=== PATIENT | male | born 1985 | race Caucasian/White ===

== ENCOUNTER 2019-05-30 14:37 | Emergency (ER) | payer OTHER ==
[~2019-05-30] VITALS: Ht 185.4 cm; Wt 94.3 kg
[2019-05-30 15:17] VITALS: Ht 185.4 cm; Wt 94.3 kg
[2019-05-30 16:50] VITALS: BP 158/78
== END 2019-05-30 16:50 | disposition home or self-care (01) ==
LOC: ED 14:37
DX: B34.9 Viral infection, unspecified (principal); Z20.828 Contact with and (suspected) exposure to other viral communicable diseases
CPT/HCPCS: Q0092; U0002